=== PATIENT | female | born 1985 | race Two or more races ===

== ENCOUNTER 2018-09-13 17:53 | Emergency (ER) | payer MEDICAID ==
[~2018-09-13 17:53] MED LIST: ALPR-429 PO; BUS10 PO; FEXO-72 PO; IBUP800T37 PO; LANO56CR3 TP; LOR5 PO; NO ROUTINE MEDS; ORAL BIRTH CONTROL; OXYC-865 PO; PREN-187 PO
[2018-09-13 18:02] VITALS: BP 104/75
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
[2018-09-13] MEDS ORDERED: PENI-24 PO (18:24)
== END 2018-09-13 18:32 | disposition home or self-care (01) ==
LOC: ER 18:18
DX: K08.89 Other specified disorders of teeth and supporting structures (principal)
CPT/HCPCS: 99283